=== PATIENT | female | born 1995 | race African-American/Black ===

== ENCOUNTER 2018-10-31 07:33 | Inpatient (IN) | payer OTHER ==
[~2018-10-31] VITALS: Ht 180.3 cm; Wt 120.5 kg
[2018-11-03] VITALS (68 sets, daily range): BP systolic 98–168; BP diastolic 54–90; PULSE 81–133; TEMP 98.6–99.1
--- NOTE | 2018-11-03 06:55 | NUR ---
0655- Pt arrives on unit ambulatory for scheduled induction. Pt and oriented to room. Pt into bathroom to change into gown. 0707- Pt into bed, EFM and TOCO on and tracing. Assessment completed. IV start, labs drawn.
[2018-11-03] MEDS ORDERED: CONCEPT DHA1 CAP PO (07:12)
[2018-11-03 08:05] LABS: BASO % 0.2 % (0.0-2.0); EOS # 0.1 (0.0-0.7); EOS % 0.5 % (0-4.0); GRAN # 6.7 (1.4-6.5); GRAN % 72.3 % (42.2-75.2); HEMATOCRIT 37.1 % (37.0-47.0); HEMOGLOBIN 12.4 g/dl (12.5-16.0); LYMPH # 1.7 (1.2-3.4); LYMPH % 18.3 % (20.0-51.0); MEAN CELL VOLUME 86 fl (80.0-100.0); MEAN CORPUSCULAR HEMOGLOBIN 29 pg (27.0-31.0); MEAN CORPUSCULAR HGB CONC 33 g/dl (33.0-37.0); MEAN PLATELET VOLUME 10.4 fl (7.4-10.4); MONO # 0.7 (0.1-0.6); MONO % 7.6 % (1.7-9.3); PLATELET COUNT 192 K/mm3 (130-400); REDCELL DISTRIBUTION WIDTH-CV 14.6 % (11.5-14.5)
--- NOTE | 2018-11-03 08:23 | NUR ---
08- Pt ambulates to LR5, we moved Pt due to the window leaking water onto the floor. Maintanence called. Pt and oriented to room. Pt voids in bathroom prior to going back into bed. 829- Pt into bed, EFM and TOCO on and tracing.
--- NOTE | 2018-11-03 08:45 | NUR ---
0837- Dr Aleman at bedside. Discusses plan of care, questions answered. 0842- SVE by MD. Pt very anxious, laughing uncontrollably, stating vaginal exam is uncomfortable and painful. MD attempts to AROM, unsucessful, Pt crying and having difficulty catching breath. This RN attempts to calm.
[2018-11-03] MEDS ORDERED: KLONOPIN 0.5MG0.5 MG PO (09:04)
[2018-11-03] MEDS ORDERED: ATARAX 25MG25 MG/TAB PO (09:28)
--- NOTE | 2018-11-03 13:30 | NUR ---
1325- Dr Aleman at bedside. SVE /-3, attempted to AROM, unsuccessful. Pt very upset, anxious, and crying. States check was still painful and scary. This RN attempts to calm Pt down. at bedside and supportive.
[2018-11-03] MEDS ORDERED: MOTRIN 800800 MG/TAB PO (17:47)
--- NOTE | 2018-11-03 19:00 | NUR ---
1900 - 1910 [place] units 180 mmHG
--- NOTE | 2018-11-03 20:00 | NUR ---
Dr. Aleman at bedside for SVE /-2 with head feeling more applied to cervix. Discussed plan of care with patient and spouse, all questions answered.
--- NOTE | 2018-11-03 20:00 | NUR ---
[id number] [place] units 220 mmHG
--- NOTE | 2018-11-03 21:00 | NUR ---
[id number] [place] units 200 mmHG
--- NOTE | 2018-11-03 22:00 | NUR ---
[id number] [place] units 180 mmHG
--- NOTE | 2018-11-03 23:10 | NUR ---
0066-0007 [place] units 150 mmHG.
[2018-11-04] VITALS (41 sets, daily range): BP systolic 98–149; BP diastolic 45–83; PULSE 79–121; TEMP 97.9–98.9
--- NOTE | 2018-11-04 | NUR ---
6981-9356 [place] units 180 mmHG.
--- NOTE | 2018-11-04 01:00 | NUR ---
2996-8228 [place] units 225 mmHG
--- NOTE | 2018-11-04 01:28 | NUR ---
Dr. Aleman at bedside for SVE /-2. Dr. Aleman discussing plan of care with patient and spouse, patient verbalized understanding, all questions answered. 0135 - IUPC found to be out of vagina. External toco placed per Dr. Aleman.
--- NOTE | 2018-11-04 04:57 | NUR ---
Dr. Aleman at bedside for SVE. /-2, unchanged from previous exam. discussing plan of care and recommending section at this time. Pt and spouse verbalized understanding, agreeable with plan of care. Pitocin off. Og Lorenzana CRNA notified. survey technologist notified. Nursery notified. 3815 - Incision site clipped, hibiclens done to incision site.
--- NOTE | 2018-11-04 05:15 | NUR ---
Monitors removed. Pt to OR by bed and [address] Aleman do not need to obtain FHR in OR.
[2018-11-05 01:00] VITALS: BP 130/70; PULSE 100; TEMP 98.2
[2018-11-05 06:20] VITALS: BP 106/55; PULSE 94; TEMP 98
[2018-11-05 16:00] VITALS: BP 112/60; PULSE 92; TEMP 98.9
[2018-11-05 19:00] VITALS: BP 120/69; PULSE 90; TEMP 98.4
[2018-11-06] VITALS: BP 122/67; PULSE 95; TEMP 98.5
--- NOTE | 2018-11-06 02:20 | NUR ---
0220- PT CALLS OUT WITH COMPLAINTS OF PAIN, NURSE TO BEDSIDE TO DISCUSS PAIN OPTIONS. PT STATES PAIN IS AT HER INCISION AREA AND HAS GOTTEN WORSE SINCE HER DOSE OF DILAUDID AT 0100. SHE HAS TRIED ICE WITHOUT RELIEF. 228- SECOND DILAUDID 2MG TABLET GIVEN PER PT REQUEST.
[2018-11-06 04:00] VITALS: BP 121/75; PULSE 87; TEMP 98.5
[2018-11-06 06:45] VITALS: BP 124/66; PULSE 82; TEMP 97.9
--- NOTE | 2018-11-06 10:06 | NUR ---
Initial visit; Parents thanked Lace Cutter for offering congratulations and God's blessings for the of their son. Lace Cutter thanked them for choosing [facility].
--- NOTE | 2018-11-06 10:30 | NUR ---
Ambulates to the bathroom. Takes shower. Dressing taken off by the nurse.
[2018-11-06] MEDS ORDERED: DILAUDID 2MG TAB2 MG PO (12:14)
[2018-11-06] MEDS ORDERED: MOTRIN 600600 MG/TAB PO (12:14)
--- NOTE | 2018-11-06 12:30 | NUR ---
Request dilaudid. Dilaudid 4 mg given per request and as ordered.
--- NOTE | 2018-11-06 14:30 | NUR ---
Discharge instructions given, verbalizes understanding.
== END 2018-11-06 14:50 | disposition home or self-care (01) | DRG 787 ==
LOC: OB 11-03 06:52 → LDR 11-03 06:52 → OB 11-04 07:00
PROVIDERS: ADMIT Obstetrics & Gynecology
PROC: 10907ZC Drainage of Amniotic Fluid, Therapeutic from Products of Conception, Via Natural or Artificial Opening (ICD-10-PCS; 2018-11-03)
PROC: 3E033VJ Introduction of Other Hormone into Peripheral Vein, Percutaneous Approach (ICD-10-PCS; 2018-11-03)
PROC: 10D00Z1 Extraction of Products of Conception, Low, Open Approach (ICD-10-PCS; principal; 2018-11-04)
DX: O99.214 Obesity complicating childbirth (principal); O99.354 Diseases of the nervous system complicating childbirth; O99.824 Streptococcus B carrier state complicating childbirth; O62.0 Primary inadequate contractions; E66.01 Morbid (severe) obesity due to excess calories; O99.613 Diseases of the digestive system complicating pregnancy, third trimester; K21.9 Gastro-esophageal reflux disease without esophagitis; O99.013 Anemia complicating pregnancy, third trimester; D64.9 Anemia, unspecified; O99.513 Diseases of the respiratory system complicating pregnancy, third trimester; J45.909 Unspecified asthma, uncomplicated; O69.1XX0 Labor and delivery complicated by cord around neck, with compression, not applicable or unspecified; O99.344 Other mental disorders complicating childbirth; F32.9 Major depressive disorder, single episode, unspecified; F41.9 Anxiety disorder, unspecified; G43.909 Migraine, unspecified, not intractable, without status migrainosus; Z3A.39 39 weeks gestation of pregnancy; Z37.0 Single live birth; Z88.8 Allergy status to other drugs, medicaments and biological substances; Z88.5 Allergy status to narcotic agent
CPT/HCPCS: J1200; J1885; J2270; J2405; J2590; J2704; J3010; J3370; J7050; J7120

== ENCOUNTER 2018-11-08 21:13 | Inpatient (IN) | payer OTHER ==
[~2018-11-08] VITALS: Ht 180.3 cm; Wt 262.0 kg
[~2018-11-08 21:13] MED LIST: ATARAX 25MG25 MG/TAB PO; CONCEPT DHA1 CAP PO; DILAUDID 2MG TAB2 MG PO; KLONOPIN 0.5MG0.5 MG PO; MOTRIN 600600 MG/TAB PO; MOTRIN 800800 MG/TAB PO
[2018-11-08] MEDS ORDERED: COLACE 100100 MG/CAP PO (21:40)
[2018-11-08 21:50] LABS: BASO % 0.4 % (0.0-2.0); EOS # 0.1 (0.0-0.7); EOS % 1.5 % (0-4.0); GRAN # 6.9 (1.4-6.5); GRAN % 85.9 % (42.2-75.2); HEMATOCRIT 32.9 % (37.0-47.0); HEMOGLOBIN 10.9 g/dl (12.5-16.0); LYMPH # 0.6 (1.2-3.4); LYMPH % 7.8 % (20.0-51.0); MEAN CELL VOLUME 87 fl (80.0-100.0); MEAN CORPUSCULAR HEMOGLOBIN 29 pg (27.0-31.0); MEAN CORPUSCULAR HGB CONC 33 g/dl (33.0-37.0); MEAN PLATELET VOLUME 9.6 fl (7.4-10.4); MONO # 0.3 (0.1-0.6); MONO % 3.9 % (1.7-9.3); PLATELET COUNT 224 K/mm3 (130-400)
[2018-11-08 22:15] LABS: ALBUMIN 3.4 gm/dL (3.5-5.0); BILIRUBIN,TOTAL 0.2 mg/dL (0.0-1.0); CALCIUM 9.1 mg/dL (8.4-10.2); CREATININE, serum 0.71 (0.52-1.25); POTASSIUM 3.8 mmol/L (3.4-5.0); TOTAL PROTEIN 6.7 gm/dL (6.4-8.2)
[2018-11-08 22:28] LABS: COLLECTION METHOD CATHETER
[2018-11-08 22:34] LABS: C-REACTIVE PROTEIN 15.3 mg/dL (0.0-0.9)
[2018-11-08 22:35] LABS: PH 6 (5-8); SQUAMOUS EPITHELIAL 0-2 /hpf; URINE APPEARANCE Clear; URINE BACTERIA None Seen /hpf; URINE BILIRUBIN Negative (NEGATIVE); URINE BLOOD 1+ (NEGATIVE); URINE COLOR Yellow; URINE GLUCOSE Negative (NEGATIVE); URINE KETONE Negative (NEGATIVE); URINE LEUKOCYTE ESTERASE Negative (NEGATIVE); URINE NITRATE Negative (NEGATIVE); URINE PROTEIN(semi-quant) Negative (NEGATIVE); URINE RBC 0-2 /hpf; URINE UROBILINOGEN Negative (NEGATIVE)
[2018-11-09] VITALS (9 sets, daily range): BP systolic 117–136; BP diastolic 63–81; PULSE 72–105; TEMP 97.8–101.9
--- NOTE | 2018-11-09 00:25 | NUR ---
Pt to room 222 from ER. Pt ambulatory to bed and oriented to room. VS taken. Pt states she feels like her fever has gone down. Temp noted 101.9, will notify . Assessment completed. C/S incision warm to touch, no discharge noted. Plan of care explained to pt who verbalizes understanding. Pt requesting to restart IV at this time. Call light within reach.
[2018-11-09 07:35] LABS: BASO % 0.3 % (0.0-2.0); EOS # 0.1 (0.0-0.7); EOS % 0.9 % (0-4.0); GRAN # 5.6 (1.4-6.5); GRAN % 79.2 % (42.2-75.2); LYMPH # 0.8 (1.2-3.4); LYMPH % 11.3 % (20.0-51.0); MEAN CELL VOLUME 87 fl (80.0-100.0); MEAN CORPUSCULAR HGB CONC 33 g/dl (33.0-37.0); MEAN PLATELET VOLUME 9.4 fl (7.4-10.4); MONO # 0.5 (0.1-0.6); MONO % 7.4 % (1.7-9.3); PLATELET COUNT 187 K/mm3 (130-400); RED BLOOD COUNT 3.46 M/mm3 (4.10-5.30); REDCELL DISTRIBUTION WIDTH-CV 14.1 % (11.5-14.5)
[2018-11-09 07:39] LABS: HEMATOCRIT 30.2 % (37.0-47.0); HEMOGLOBIN 9.9 g/dl (12.5-16.0); MEAN CORPUSCULAR HEMOGLOBIN 29 pg (27.0-31.0)
[2018-11-09 07:45] LABS: ALBUMIN 2.9 gm/dL (3.5-5.0); BILIRUBIN,TOTAL 0.5 mg/dL (0.0-1.0); CALCIUM 8.4 mg/dL (8.4-10.2); CREATININE, serum 0.75 (0.52-1.25); POTASSIUM 3.9 mmol/L (3.4-5.0); TOTAL PROTEIN 5.7 gm/dL (6.4-8.2)
--- NOTE | 2018-11-09 19:00 | NUR ---
VERIFIED WITH PHARMACY TO GIVE AUGMENTIN DOSE LATER THAN 1900 WAS ORIGINALLY SCHEDULED SINCE FIRST DOSE WAS AT 1403
--- NOTE | 2018-11-09 21:52 | NUR ---
MOTHER AND HERE FOR OVERNITE. PUMPS AND FEEDS
[2018-11-09] MEDS ORDERED: AMOXICILLIN 8751 TAB PO (23:08)
[2018-11-09] MEDS ORDERED: CLEOCIN HC150 MG/CAP PO (23:08)
[2018-11-09] MEDS ORDERED: DILAUDID 2MG TAB2 MG PO (23:08)
--- NOTE | 2018-11-10 02:00 | NUR ---
VERY TEARFUL AND ANXIOUS. UNABLE TO SLEEP DUE TO PAIN AND ANXIETY, STATES SHE S HAVING AN ANXIETY ATTACK BECAUSE HER IS IN [place] AND SHE DOESNT WANT TO BE A BOTHER TO HER MOTEHR WHO IS HERE IN ROOM WITH HER AND . HER MOTHER CONSIDERS TAKING BABY HOME TO CARE FOR BUT AFTER THE TWO DISCUSS IT AND DOES FACETIME WITH SPOUSE. SHE DECIDES TO HAVE MOTHER STAY. AMBIEN GIVEN. THIS RN STAYS WITH PATIENT ALLOWING HER TO VERBALIZE FRUSTATION UNTIL LESS ANXIOUS
[2018-11-10 05:16] VITALS: BP 131/79; PULSE 81; TEMP 97.8
[2018-11-10 06:40] VITALS: BP 141/86; PULSE 82; TEMP 97.5
[2018-11-10 08:42] LABS: HEMATOCRIT 28.8 % (37.0-47.0); HEMOGLOBIN 9.5 g/dl (12.5-16.0); MEAN CELL VOLUME 87 fl (80.0-100.0); MEAN CORPUSCULAR HEMOGLOBIN 29 pg (27.0-31.0); MEAN CORPUSCULAR HGB CONC 33 g/dl (33.0-37.0); MEAN PLATELET VOLUME 9.9 fl (7.4-10.4); PLATELET COUNT 244 K/mm3 (130-400); RED BLOOD COUNT 3.31 M/mm3 (4.10-5.30); REDCELL DISTRIBUTION WIDTH-CV 14.2 % (11.5-14.5)
[2018-11-10 09:11] LABS: BAND 11 % (0-10); EOSINOPHIL 2 % (0-4); HYPOCHROMIA 1+; LYMPHOCYTE 9 % (20.0-51.0); NEUTROPHILS 73 % (42.0-75.2); PLATELET ESTIMATE NORMAL (NORMAL)
--- NOTE | 2018-11-10 11:04 | NUR ---
1030- PATIENT FEELING NAUSEOUS 1100- PATIENT STARTING TO FEEL BETTER
[2018-11-10 14:00] VITALS: BP 141/71; PULSE 86; TEMP 98.6
== END 2018-11-10 14:10 | disposition home or self-care (01) | DRG 776 ==
LOC: COL.ER 21:13 → OB 22:53
PROVIDERS: Emergency Medicine; Obstetrics & Gynecology; ADMIT Obstetrics & Gynecology
DX: O86.12 Endometritis following delivery (principal); O86.09 Infection of obstetric surgical wound, other surgical site; K21.9 Gastro-esophageal reflux disease without esophagitis; O99.63 Diseases of the digestive system complicating the puerperium; O99.345 Other mental disorders complicating the puerperium; F41.9 Anxiety disorder, unspecified; J45.909 Unspecified asthma, uncomplicated; O99.53 Diseases of the respiratory system complicating the puerperium
CPT/HCPCS: J1170; J2405; J2543; J7030; J7120; Q9967

== ENCOUNTER → 2018-11-15 | Outpatient (CLI) | payer OTHER ==
[~2018-11-15] MED LIST changes: +AMOXICILLIN 8751 TAB PO; +CLEOCIN HC150 MG/CAP PO; +COLACE 100100 MG/CAP PO
== END ==
LOC: ZCOL.LAB 18:27
DX: O86.00 Infection of obstetric surgical wound, unspecified (principal)

== ENCOUNTER → 2018-11-24 | Outpatient (CLI) | payer OTHER ==
--- NOTE | 2018-11-24 14:57 | NUR ---
Pt, Mi Jones, presents for outpatient consult with 20 day old baby boy, Eduardo Jones, and her spouse Lenny Jones. Mi states Eduardo has not been staying latched at the breast after post- complications and would like assistance getting latch re-established. Eduardo was born on [birth year] by c/section and weighed 8#15.6 oz (4070 gms). Discharge weight was 8#9oz (3885 gms), and they were instructed on SNS prior to discharge because Eduardo was impatient at the breast. Today Eduardo weighs 9#9.1oz (4340 gms). His current feeding plan is every 2-3 hours in the daytime and upto 4 hours a noc. He is being offered the breast as some feedings but he does not stay latched so is feed 3oz EBM or formula by bottle. Mi is pumping every 2-4 hours and reports collecting 1.5-3oz each time so Eduardo is receiving about 50/50 EBM and formula. Pt advised on some position and latching techniques and Eduardo nurses almost 30 min on one side and 10 on the other. His total weight gain after is 2oz (58 gms). He is fed 1oz formula by bottle. LC discusses reasons for low milk supply. As mentioned pt has some PP complications that seperated her from Eduardo, she was not able to pump regularly at that time, she has newly dx low thyroid but is not under treatment for it at this time. Suggestions to increase milk supply include dilagent pumping schedule, power pumping, herbal supplement, diet, and fluid guidelines. POC: Work on /latching. Supplement 1-2oz p and 3oz if not . Pump after each . F/U: One week. Questions invited and answered.
== END ==
LOC: OLC 13:58
DX: Z39.1 Encounter for care and examination of lactating mother (principal); Z71.89 Other specified counseling

== ENCOUNTER → 2018-12-01 | Outpatient (CLI) | payer OTHER ==
--- NOTE | 2018-12-01 14:27 | NUR ---
Pt, Mi Jones, presents for outpatient consult to evaluate her 1 month old baby, Eduardo Jones's . Eduardo was born on [birth year] by c/section and weighed 8#15.6oz (4071 gms). Last week at consult he weighed 9#9.1oz (4340 gms). Pt reports she continues to breastfeed every 2-3 hours except for two feedings at noc when he get bottle fed 3-4 oz while she pumps. She also reports she continues to supplement 2-3oz EBM or formula after . She also states she is able to collect 2-3oz when she pumps. Shes states she has just started taking herbal supplements. Today Eduardo weighs 10#1oz (4564 gms). After Eduardo has a weight gain of 1.3oz. POC: Continue /supplement/and pumping, as well as herbal supplements. F/U: One month appt. with Dr. Clarke on 12/07/18. Pt will be relocating out of town next week. No further consults scheduled. Questions invited and answered.
== END ==
LOC: OLC 13:41
DX: Z39.1 Encounter for care and examination of lactating mother (principal); Z71.89 Other specified counseling